=== PATIENT | female | born 1980 | race Hispanic/Latino ===

== ENCOUNTER 2024-04-25 16:47 | Inpatient (IN) | payer SELFPAY ==
[~2024-04-25] VITALS: Ht 149.9 cm; Wt 93.4 kg
[2024-04-25 17:37] LABS: BASOPHILS # (AUTO) 0.03 K/uL (0.00-0.20); BASOPHILS % (AUTO) 0.3 % (0.0-5.0); EOSINOPHILS # (AUTO) 0.19 K/uL (0.00-0.70); EOSINOPHILS % (AUTO) 1.7 % (0.0-8.0); HEMATOCRIT 34.2 % (36-48); IMMATURE GRANULOCYTE ABSOLUTE 0.13 K/uL (0-1); LYMPHOCYTES # (AUTO) 2.4 K/uL (1.0-4.8); LYMPHOCYTES % (AUTO) 20.9 % (21.0-51.0); MEAN CORPUSCULAR HEMOGLOBIN 29.3 pg (27.0-33.0); MEAN CORPUSCULAR HGB CONC 33.6 g/dL (32.0-36.0); MONOCYTES # (AUTO) 0.7 K/uL (0.1-1.0); MONOCYTES % (AUTO) 5.9 % (3.0-13.0); NEUTROPHILS # (AUTO) 7.9 K/uL (1.8-7.7); PLATELET COUNT (AUTO) 404 K/uL (130-400); RED BLOOD CELL COUNT(AUTO) 3.93 MIL/uL (4.00-5.50); RED CELL DISTRIBUTION WIDTH 12.4 % (11.0-15.5); WHITE BLOOD COUNT (AUTO) 11.3 K/uL (4.8-10.8)
[2024-04-25] MEDS: ZOSYN 3.375GM+NS 50ML 50 ML IVPB STA (17:54)
[2024-04-25] MEDS: 0.9%NACL 1000ML 2,586 ML IV ONE (17:54)
[2024-04-25 18:02] LABS: CREATININE 0.6 mg/dL (0.5-1.0); POTASSIUM 4.1 mmol/L (3.5-5.1)
[2024-04-25] MEDS ORDERED: IOHEXOL 350 MG/ML 100ML INFUS..BTL IV ONE (18:18)
[2024-04-25] MEDS: FENTanyl CITRate PF 50 MCG/1 ML 2ML VIAL IVP ONE (19:19)
[2024-04-25] MEDS: LIDOCAINE HCL 1% 20 ML VIAL INJ SCH (19:19)
[2024-04-25] MEDS: VANCOMYCIN 1G/250ML KIT 250 ML IV ONE (19:27)
[2024-04-25 20:52] LABS: APPEARANCE,URINE CLEAR (CLEAR); BILIRUBIN,URINE NEGATIVE (NEGATIVE); COLOR,URINE COLORLESS (YELLOW); GLUCOSE, URINE (UA) >=1000 mg/dL (NEGATIVE); KETONES,URINE 100 mg/dL (NEGATIVE); LEUKOCYTE ESTERASE ,URINE NEGATIVE Leu/uL (NEGATIVE); NITRATE,URINE NEGATIVE (NEGATIVE); OCCULT BLOOD,URINE NEGATIVE (NEGATIVE); PH,URINE 5.5 (5.0-8.0); PROTEIN,URINE NEGATIVE (NEGATIVE); UROBILINOGEN,URINE 0.2 mg/dL (0.2-1.0)
[2024-04-25 20:53] LABS: ADD UA MICROSCOPIC YES
[2024-04-25 20:58] LABS: SQUAMOUS EPITHELIAL CELL,UR RARE /HPF (0-2); YEAST,URINE BUDDING FEW /HPF (None Seen)
[2024-04-25] MEDS ORDERED: GLUCAGON 1MG KIT 1 MG ML IM PRN (22:30)
[2024-04-25] MEDS ORDERED: acetaMINOPHEN 325 MG TAB PO PRN (22:30)
[2024-04-25] MEDS ORDERED: PoTASSium chl 10% ELIXIR 20MEQ 20 MEQ/15 ML UDCUP PO PRN (22:30)
[2024-04-25] MEDS ORDERED: DEXTROSE 50%-WATER 50 ML DISP.SYRIN IV PRN (22:30)
[2024-04-25] MEDS ORDERED: VANCOMYCIN PROTOCOL PER PHARMACY IV PRN (22:30)
[2024-04-25] MEDS ORDERED: MAGNESIUM 2GM PREMIX 50ML 50 ML IV PRN (22:30)
[2024-04-25] MEDS ORDERED: ondanSETRON 4MG INJ IV PRN (22:30)
[2024-04-25] MEDS ORDERED: PoTASSium chloRIDE 20MEQ ER 20 MEQ ERTAB PO PRN (22:30)
[2024-04-25] MEDS ORDERED: PoTASSium chloRIDE 20MEQ/100ML 100 ML IV PRN (22:30)
[2024-04-25] MEDS: 0.9%NACL 1000ML 1,000 ML IV SCH (22:55)
[2024-04-26 00:18] VITALS: BP 111/65; PULSE 86; RESP 18; TEMP 98.2; O2SAT 97
[2024-04-26 04:00] VITALS: BP 126/63; PULSE 86; RESP 18; TEMP 98.3
[2024-04-26] MEDS: ZOSYN 3.375GM+NS 50ML 50 ML IV SCH (04:46)
[2024-04-26] MEDS: VANCOMYCIN 1.25 GM/250 ML BAG 250 ML IV SCH (05:30)
[2024-04-26] MEDS: HYDROcodone/APAP 5/325 1 TAB TABLET PO PRN (05:37)
[2024-04-26 05:49] LABS: BASOPHILS # (AUTO) 0.04 K/uL (0.00-0.20); BASOPHILS % (AUTO) 0.5 % (0.0-5.0); EOSINOPHILS # (AUTO) 0.13 K/uL (0.00-0.70); EOSINOPHILS % (AUTO) 1.5 % (0.0-8.0); HEMATOCRIT 28.1 % (36-48); IMMATURE GRANULOCYTE ABSOLUTE 0.11 K/uL (0-1); LYMPHOCYTES # (AUTO) 2.7 K/uL (1.0-4.8); LYMPHOCYTES % (AUTO) 30.6 % (21.0-51.0); MEAN CORPUSCULAR HEMOGLOBIN 29.8 pg (27.0-33.0); MEAN CORPUSCULAR HGB CONC 33.5 g/dL (32.0-36.0); MEAN CORPUSCULAR VOLUME 89.2 fL (79-99); MONOCYTES # (AUTO) 0.5 K/uL (0.1-1.0); MONOCYTES % (AUTO) 6.1 % (3.0-13.0); NEUTROPHILS # (AUTO) 5.3 K/uL (1.8-7.7); PLATELET COUNT (AUTO) 326 K/uL (130-400); RED BLOOD CELL COUNT(AUTO) 3.15 MIL/uL (4.00-5.50); RED CELL DISTRIBUTION WIDTH 12.4 % (11.0-15.5); WHITE BLOOD COUNT (AUTO) 8.7 K/uL (4.8-10.8)
[2024-04-26 05:56] LABS: INR 0.99 (0.85-1.15); PROTHROMBIN TIME 10.7 SEC (9.6-11.6)
[2024-04-26 05:58] LABS: PARTIAL THROMBOPLASTIN TIME 29.5 SEC (26.3-35.5)
[2024-04-26 06:11] LABS: BILIRUBIN,TOTAL 0.1 mg/dL (0.2-1.0); CREATININE 0.4 mg/dL (0.5-1.0); MAGNESIUM 1.8 mg/dL (1.80-2.40); TOTAL PROTEIN, SERUM 6.1 g/dL (6.0-8.3)
[2024-04-26 06:14] LABS: HEMOGLOBIN A1C 12.7 % (4.0-6.0)
[2024-04-26] MEDS: INSULIN humuLIN R 100 UNIT/ML 3ML SQ SCH ×2 (06:53→12:12)
[2024-04-26 07:04] LABS: ERYTHROCYTE SEDIMENTATION RATE 82 MM/HR (0-20)
[2024-04-26 08:00] VITALS: BP 93/45; PULSE 75; RESP 17; TEMP 98.3; O2SAT 97
[2024-04-26] MEDS: FAMOTIDINE 20MG TAB PO SCH (09:00)
[2024-04-26] MEDS: doCUSate SODIUM 100 MG CAP PO ONE (11:10)
[2024-04-26 12:00] VITALS: BP 102/63; PULSE 82; RESP 18; TEMP 98
[2024-04-26 16:00] VITALS: BP 103/55; PULSE 77; RESP 19; TEMP 97.7
[2024-04-26 20:00] VITALS: BP 113/66; PULSE 86; RESP 18; TEMP 99.6; O2SAT 99
[2024-04-26] MEDS: INSULIN GLARgine 100 UNITS/ML 10 ML VIAL SQ SCH (21:40)
[2024-04-27] VITALS (26 sets, daily range): BP systolic 97–130; BP diastolic 47–80; PULSE 68–87; RESP 13–20; TEMP 97.3–99.3; O2SAT 94–95
[2024-04-27 06:39] LABS: BASOPHILS # (AUTO) 0.03 K/uL (0.00-0.20); BASOPHILS % (AUTO) 0.3 % (0.0-5.0); EOSINOPHILS # (AUTO) 0.12 K/uL (0.00-0.70); EOSINOPHILS % (AUTO) 1.2 % (0.0-8.0); HEMATOCRIT 27.9 % (36-48); IMMATURE GRANULOCYTE ABSOLUTE 0.07 K/uL (0-1); LYMPHOCYTES # (AUTO) 2.5 K/uL (1.0-4.8); LYMPHOCYTES % (AUTO) 24.9 % (21.0-51.0); MEAN CORPUSCULAR HEMOGLOBIN 28.7 pg (27.0-33.0); MEAN CORPUSCULAR HGB CONC 32.3 g/dL (32.0-36.0); MEAN CORPUSCULAR VOLUME 88.9 fL (79-99); MONOCYTES # (AUTO) 0.6 K/uL (0.1-1.0); MONOCYTES % (AUTO) 5.9 % (3.0-13.0); NEUTROPHILS # (AUTO) 6.6 K/uL (1.8-7.7); PLATELET COUNT (AUTO) 350 K/uL (130-400); RED BLOOD CELL COUNT(AUTO) 3.14 MIL/uL (4.00-5.50); RED CELL DISTRIBUTION WIDTH 12.5 % (11.0-15.5); WHITE BLOOD COUNT (AUTO) 9.8 K/uL (4.8-10.8)
[2024-04-27 06:54] LABS: CREATININE 0.3 mg/dL (0.5-1.0); MAGNESIUM 1.8 mg/dL (1.80-2.40); POTASSIUM 3.6 mmol/L (3.5-5.1)
[2024-04-27] MEDS: doCUSate SODIUM 100 MG CAP PO SCH (09:00)
[2024-04-27] MEDS ORDERED: BUPIvacaine/PF 0.25% 30ML VIAL IJ ONE (10:22)
[2024-04-27] MEDS ORDERED: proPOFol 10 MG/ML 20ML VIAL IV ONE (10:25)
[2024-04-27] MEDS ORDERED: SUCCINYLCHOLINE CHLORIDE 20 MG/ML 10 ML VIAL ONE (10:25)
[2024-04-27] MEDS ORDERED: ondanSETRON 4MG INJ ONE (10:25)
[2024-04-27] MEDS ORDERED: LIDOCAINE PF 100MG/5ML (2%) SYRINGE 5ML ONE (10:25)
[2024-04-27] MEDS ORDERED: dexaMETHasone SOD PHOSPHATE 10MG/ML 1ML VIAL ONE (10:25)
[2024-04-27] MEDS ORDERED: FENTanyl CITRate PF 50 MCG/1 ML 2ML VIAL ONE (10:26)
[2024-04-27] MEDS ORDERED: NEOSTIGMINE METHYLSULFATE 1MG/ML IV ONE (10:26)
[2024-04-27] MEDS ORDERED: GLYCOPYRROLATE 0.2 MG/ML 5 ML VIAL ONE (10:26)
[2024-04-27] MEDS ORDERED: MIDAZOLAM HCL 1 MG/ML 2ML VIAL ONE (10:26)
[2024-04-27] MEDS ORDERED: rocuRONium bROMide 10MG/1ML 5ML VL ONE (10:27)
[2024-04-27] MEDS: MEPERIDINE-PF 25 MG/ML SYG ONE (12:38)
[2024-04-27] MEDS: VANCOMYCIN 1.5 GM/250 ML BAG 250 ML IV SCH (20:16)
[2024-04-28] VITALS (8 sets, daily range): BP systolic 105–132; BP diastolic 60–81; PULSE 67–82; RESP 17–18; TEMP 97.4–100.4; O2SAT 97–100
[2024-04-28] MEDS: ZOSYN 3.375GM+NS 50ML 50 ML IV SCH (00:03)
[2024-04-28] MEDS: morPHINE 2 MG SYG IV PRN (15:59)
[2024-04-28] MEDS: VANCOMYCIN 1.5 GM/250 ML BAG 250 ML IV SCH (21:12)
[2024-04-28] MEDS: acetaMINOPHEN 325 MG TAB PO PRN (23:44)
[2024-04-29] VITALS (7 sets, daily range): BP systolic 95–135; BP diastolic 60–80; PULSE 69–79; RESP 18–20; TEMP 97.8–98.9; O2SAT 100
[2024-04-29 05:07] LABS: BASOPHILS # (AUTO) 0.02 K/uL (0.00-0.20); BASOPHILS % (AUTO) 0.2 % (0.0-5.0); EOSINOPHILS # (AUTO) 0.06 K/uL (0.00-0.70); EOSINOPHILS % (AUTO) 0.7 % (0.0-8.0); HEMATOCRIT 27.8 % (36-48); IMMATURE GRANULOCYTE ABSOLUTE 0.05 K/uL (0-1); LYMPHOCYTES # (AUTO) 2.2 K/uL (1.0-4.8); LYMPHOCYTES % (AUTO) 24.2 % (21.0-51.0); MEAN CORPUSCULAR HEMOGLOBIN 29.1 pg (27.0-33.0); MEAN CORPUSCULAR HGB CONC 32.4 g/dL (32.0-36.0); MONOCYTES # (AUTO) 0.8 K/uL (0.1-1.0); MONOCYTES % (AUTO) 8.3 % (3.0-13.0); PLATELET COUNT (AUTO) 293 K/uL (130-400); RED BLOOD CELL COUNT(AUTO) 3.09 MIL/uL (4.00-5.50); RED CELL DISTRIBUTION WIDTH 12.8 % (11.0-15.5); WHITE BLOOD COUNT (AUTO) 9.1 K/uL (4.8-10.8)
[2024-04-29 05:20] LABS: ALBUMIN 2.1 g/dL (3.5-5.0); BILIRUBIN,TOTAL 0.3 mg/dL (0.2-1.0); CREATININE 1.5 mg/dL (0.5-1.0); POTASSIUM 4.1 mmol/L (3.5-5.1); TOTAL PROTEIN, SERUM 5.8 g/dL (6.0-8.3)
[2024-04-30] VITALS (7 sets, daily range): BP systolic 105–140; BP diastolic 60–72; PULSE 67–76; RESP 16–20; TEMP 97.5–99; O2SAT 100
[2024-04-30 09:29] LABS: BASOPHILS # (AUTO) 0.02 K/uL (0.00-0.20); BASOPHILS % (AUTO) 0.2 % (0.0-5.0); EOSINOPHILS # (AUTO) 0.04 K/uL (0.00-0.70); EOSINOPHILS % (AUTO) 0.4 % (0.0-8.0); HEMATOCRIT 28.6 % (36-48); IMMATURE GRANULOCYTE ABSOLUTE 0.04 K/uL (0-1); LYMPHOCYTES % (AUTO) 20.7 % (21.0-51.0); MEAN CORPUSCULAR HEMOGLOBIN 29.7 pg (27.0-33.0); MEAN CORPUSCULAR HGB CONC 32.9 g/dL (32.0-36.0); MEAN CORPUSCULAR VOLUME 90.2 fL (79-99); MONOCYTES # (AUTO) 0.7 K/uL (0.1-1.0); MONOCYTES % (AUTO) 7.6 % (3.0-13.0); NEUTROPHILS # (AUTO) 6.9 K/uL (1.8-7.7); NEUTROPHILS % (AUTO) 70.7 % (40.0-77.0); PLATELET COUNT (AUTO) 289 K/uL (130-400); RED BLOOD CELL COUNT(AUTO) 3.17 MIL/uL (4.00-5.50); RED CELL DISTRIBUTION WIDTH 12.8 % (11.0-15.5); WHITE BLOOD COUNT (AUTO) 9.8 K/uL (4.8-10.8)
[2024-04-30 09:41] LABS: POTASSIUM 4.1 mmol/L (3.5-5.1)
[2024-04-30 09:50] LABS: ALBUMIN 2.2 g/dL (3.5-5.0); BILIRUBIN,TOTAL 0.6 mg/dL (0.2-1.0); MAGNESIUM 2.1 mg/dL (1.80-2.40); TOTAL PROTEIN, SERUM 6.5 g/dL (6.0-8.3)
[2024-04-30] MEDS: 0.9% NACL 500ML IV.SOLN 500 ML IV ONE (10:13)
[2024-05-01] VITALS (10 sets, daily range): BP systolic 114–147; BP diastolic 67–102; PULSE 69–98; RESP 16–19; TEMP 97.7–100.1; O2SAT 95–100
[2024-05-01 03:45] LABS: HEMATOCRIT 26.8 % (36-48); MEAN CORPUSCULAR HEMOGLOBIN 29.2 pg (27.0-33.0); MEAN CORPUSCULAR HGB CONC 32.8 g/dL (32.0-36.0); RED BLOOD CELL COUNT(AUTO) 3.01 MIL/uL (4.00-5.50); RED CELL DISTRIBUTION WIDTH 12.8 % (11.0-15.5); WHITE BLOOD COUNT (AUTO) 9.8 K/uL (4.8-10.8)
[2024-05-01 04:07] LABS: BILIRUBIN,TOTAL 0.5 mg/dL (0.2-1.0); CREATININE 3.5 mg/dL (0.5-1.0); MAGNESIUM 2.2 mg/dL (1.80-2.40); POTASSIUM 4.5 mmol/L (3.5-5.1); TOTAL PROTEIN, SERUM 6.1 g/dL (6.0-8.3)
[2024-05-01] MEDS ORDERED: VANCOMYCIN 1.25 GM/250 ML BAG 250 ML IV SCH (09:00)
[2024-05-01 09:34] LABS: BASOPHILS # (AUTO) 0.03 K/uL (0.00-0.20); BASOPHILS % (AUTO) 0.3 % (0.0-5.0); EOSINOPHILS # (AUTO) 0.08 K/uL (0.00-0.70); EOSINOPHILS % (AUTO) 0.8 % (0.0-8.0); HEMATOCRIT 30.6 % (36-48); IMMATURE GRANULOCYTE ABSOLUTE 0.05 K/uL (0-1); LYMPHOCYTES # (AUTO) 1.1 K/uL (1.0-4.8); LYMPHOCYTES % (AUTO) 10.7 % (21.0-51.0); MEAN CORPUSCULAR HEMOGLOBIN 29.5 pg (27.0-33.0); MEAN CORPUSCULAR HGB CONC 32.4 g/dL (32.0-36.0); MEAN CORPUSCULAR VOLUME 91.1 fL (79-99); MONOCYTES # (AUTO) 0.7 K/uL (0.1-1.0); NEUTROPHILS # (AUTO) 8.5 K/uL (1.8-7.7); NEUTROPHILS % (AUTO) 80.7 % (40.0-77.0); PLATELET COUNT (AUTO) 271 K/uL (130-400); RED BLOOD CELL COUNT(AUTO) 3.36 MIL/uL (4.00-5.50); RED CELL DISTRIBUTION WIDTH 12.8 % (11.0-15.5); WHITE BLOOD COUNT (AUTO) 10.5 K/uL (4.8-10.8)
[2024-05-01] MEDS: 0.9%NACL 1000ML 1,000 ML IV SCH (10:15)
[2024-05-01 10:58] LABS: ABG OXYGEN SATURATION 48.6 % (94.0-98.0); BASE EXCESS,VENOUS BLOOD GAS -4.9 (-2.0-3.0); DEVICE COMMENT LB; PCO2,VENOUS BLOOD GAS 37 (38-54); PH,VENOUS BLOOD GAS 7.354 (7.320-7.430); PO2,VENOUS BLOOD GAS 27.3 mmHg (23.0-48.0); VENT MODE, BG VBG (ROOM AIR)
[2024-05-01] MEDS: SODIUM BICARBONATE 650 MG TAB PO SCH (12:37)
[2024-05-01] MEDS: Vitamin B Complex/Vit C/Folic Acid PO SCH (13:40)
[2024-05-01 23:52] LABS: APPEARANCE,URINE CLEAR (CLEAR); BILIRUBIN,URINE NEGATIVE (NEGATIVE); COLOR,URINE COLORLESS (YELLOW); GLUCOSE, URINE (UA) NEGATIVE (NEGATIVE); KETONES,URINE NEGATIVE (NEGATIVE); LEUKOCYTE ESTERASE ,URINE NEGATIVE Leu/uL (NEGATIVE); NITRATE,URINE NEGATIVE (NEGATIVE); OCCULT BLOOD,URINE SMALL (NEGATIVE); PH,URINE 5.5 (5.0-8.0); PROTEIN,URINE NEGATIVE (NEGATIVE); UROBILINOGEN,URINE 0.2 mg/dL (0.2-1.0)
[2024-05-01 23:54] LABS: ADD UA MICROSCOPIC YES
[2024-05-01 23:56] LABS: BACTERIA,URINE RARE /HPF (None Seen); SQUAMOUS EPITHELIAL CELL,UR RARE /HPF (0-2)
[2024-05-02] VITALS (7 sets, daily range): BP systolic 126–157; BP diastolic 65–92; PULSE 68–80; RESP 17–19; TEMP 97.6–98.9; O2SAT 97–98
[2024-05-02 04:36] LABS: BASOPHILS # (AUTO) 0.03 K/uL (0.00-0.20); BASOPHILS % (AUTO) 0.3 % (0.0-5.0); EOSINOPHILS # (AUTO) 0.05 K/uL (0.00-0.70); EOSINOPHILS % (AUTO) 0.4 % (0.0-8.0); HEMATOCRIT 26.9 % (36-48); IMMATURE GRANULOCYTE ABSOLUTE 0.06 K/uL (0-1); LYMPHOCYTES # (AUTO) 1.5 K/uL (1.0-4.8); LYMPHOCYTES % (AUTO) 13.5 % (21.0-51.0); MEAN CORPUSCULAR HEMOGLOBIN 28.9 pg (27.0-33.0); MEAN CORPUSCULAR HGB CONC 32.3 g/dL (32.0-36.0); MEAN CORPUSCULAR VOLUME 89.4 fL (79-99); MONOCYTES # (AUTO) 0.8 K/uL (0.1-1.0); MONOCYTES % (AUTO) 7.3 % (3.0-13.0); NEUTROPHILS # (AUTO) 8.9 K/uL (1.8-7.7); PLATELET COUNT (AUTO) 265 K/uL (130-400); RED BLOOD CELL COUNT(AUTO) 3.01 MIL/uL (4.00-5.50); RED CELL DISTRIBUTION WIDTH 12.8 % (11.0-15.5); WHITE BLOOD COUNT (AUTO) 11.4 K/uL (4.8-10.8)
[2024-05-02 05:14] LABS: BILIRUBIN,TOTAL 0.5 mg/dL (0.2-1.0); CREATININE 4.1 mg/dL (0.5-1.0); MAGNESIUM 2.2 mg/dL (1.80-2.40); PHOSPHORUS 5.6 mg/dL (2.5-4.9); POTASSIUM 4.8 mmol/L (3.5-5.1); TOTAL PROTEIN, SERUM 6.5 g/dL (6.0-8.3)
[2024-05-02] MEDS ORDERED: IRON sUCROse COMPLEX 100 MG/5 ML VIAL IVP SCH (15:30)
[2024-05-02] MEDS ORDERED: COMPOUND IV REFRIGERATED 1 EACH IVSOLN MISC PRN (16:00)
[2024-05-02] MEDS: IRON SUCROSE COMPLEX 300 MG+/NS 250ML IV SCH (16:33)
[2024-05-02] MEDS ORDERED: ZOSYN 3.375GM+NS 50ML 50 ML IV SCH (20:00)
[2024-05-02] MEDS: levoFLOXacin 750 MG TABLET PO ONE (20:50)
[2024-05-03 00:05] VITALS: BP 154/91; PULSE 81; RESP 18; TEMP 98
[2024-05-03 04:11] VITALS: BP 157/78; PULSE 73; RESP 18; TEMP 98.1
[2024-05-03 06:07] LABS: BASOPHILS # (AUTO) 0.02 K/uL (0.00-0.20); BASOPHILS % (AUTO) 0.2 % (0.0-5.0); EOSINOPHILS # (AUTO) 0.03 K/uL (0.00-0.70); EOSINOPHILS % (AUTO) 0.2 % (0.0-8.0); IMMATURE GRANULOCYTE ABSOLUTE 0.08 K/uL (0-1); LYMPHOCYTES # (AUTO) 1.2 K/uL (1.0-4.8); LYMPHOCYTES % (AUTO) 10.3 % (21.0-51.0); MEAN CORPUSCULAR HEMOGLOBIN 28.9 pg (27.0-33.0); MEAN CORPUSCULAR HGB CONC 31.9 g/dL (32.0-36.0); MEAN CORPUSCULAR VOLUME 90.6 fL (79-99); MONOCYTES # (AUTO) 0.9 K/uL (0.1-1.0); MONOCYTES % (AUTO) 7.1 % (3.0-13.0); NEUTROPHILS # (AUTO) 9.8 K/uL (1.8-7.7); NEUTROPHILS % (AUTO) 81.5 % (40.0-77.0); PLATELET COUNT (AUTO) 261 K/uL (130-400); RED BLOOD CELL COUNT(AUTO) 2.87 MIL/uL (4.00-5.50); RED CELL DISTRIBUTION WIDTH 12.9 % (11.0-15.5); WHITE BLOOD COUNT (AUTO) 12.1 K/uL (4.8-10.8)
[2024-05-03 06:35] LABS: ALBUMIN 1.9 g/dL (3.5-5.0); BILIRUBIN,TOTAL 0.5 mg/dL (0.2-1.0); CREATININE 4.4 mg/dL (0.5-1.0); PHOSPHORUS 5.7 mg/dL (2.5-4.9); TOTAL PROTEIN, SERUM 6.6 g/dL (6.0-8.3)
[2024-05-03 08:00] VITALS: BP 153/89; PULSE 77; RESP 18; TEMP 98; O2SAT 99
[2024-05-03 11:45] VITALS: BP 151/79; PULSE 73; RESP 18; TEMP 98.7
[2024-05-03] MEDS ORDERED: Folic Acid/Vitamin B Comp W-C PO (11:56)
[2024-05-03] MEDS ORDERED: INSU3INS3 SQ (12:11)
[2024-05-04] MEDS ORDERED: FAMOTIDINE 20MG TAB PO SCH (09:00)
[2024-05-04] MEDS ORDERED: levoFLOXacin 500 MG TABLET PO SCH (21:00)
== END 2024-05-03 19:55 | disposition home or self-care (01) | DRG 347 ==
LOC: EDH 16:47 → EDSEX 16:47 → EDHIP 22:19 → 3CH 22:54
PROVIDERS: ADMIT Internal Medicine; ATTEND Internal Medicine
PROC: 0D9Q0ZZ Drainage of Anus, Open Approach (ICD-10-PCS; principal; 2024-04-27 08:00)
DX: K61.1 Rectal abscess (principal); N17.0 Acute kidney failure with tubular necrosis; L02.215 Cutaneous abscess of perineum; L02.31 Cutaneous abscess of buttock; R65.10 Systemic inflammatory response syndrome (SIRS) of non-infectious origin without acute organ dysfunction; Z68.41 Body mass index [BMI] 40.0-44.9, adult; E87.1 Hypo-osmolality and hyponatremia; E11.65 Type 2 diabetes mellitus with hyperglycemia; D64.9 Anemia, unspecified; D75.839 Thrombocytosis, unspecified; B99.8 Other infectious disease; K61.2 Anorectal abscess; E66.01 Morbid (severe) obesity due to excess calories; E11.22 Type 2 diabetes mellitus with diabetic chronic kidney disease; E87.8 Other disorders of electrolyte and fluid balance, not elsewhere classified; F17.200 Nicotine dependence, unspecified, uncomplicated; I12.9 Hypertensive chronic kidney disease with stage 1 through stage 4 chronic kidney disease, or unspecified chronic kidney disease; K62.89 Other specified diseases of anus and rectum; N18.9 Chronic kidney disease, unspecified; B96.1 Klebsiella pneumoniae [K. pneumoniae] as the cause of diseases classified elsewhere; B95.61 Methicillin susceptible Staphylococcus aureus infection as the cause of diseases classified elsewhere; B96.29 Other Escherichia coli [E. coli] as the cause of diseases classified elsewhere; Z91.148 Patient's other noncompliance with medication regimen for other reason
CPT/HCPCS: 36415; 36600; 74177; 76770; 80048; 80053; 80202; 81001; 82306; 82607; 82728; 82803; 82948; 83036; 83540; 83550; 83605; 83735; 84100; 84145; 84550; 84703; 85025; 85027; 85610; 85651; 85730; 86140; 87040; 87070; 87076; 87086; 87186; 87205; 96375; A6266; G0378; J0330; J1100; J1756; J1815; J2003; J2175; J2250; J2270; J2405; J2543; J2704; J2710; J3010; J3370; J3490; J7030; J7050; Q9967; 3370; A4215; A4216; A4221; A4222; A4223; A4452; A4600; A4930; J0665